=== PATIENT | female | born 1955 | race Hispanic/Latino ===

== ENCOUNTER 2020-06-21 10:06 | Outpatient (CLI) | payer MEDICARE, SELFPAY | END 2020-06-21 10:07 | disposition home or self-care (01) | LOC: ANHCOVIDVC 10:06 | PROVIDERS: PCP Family Medicine | DX: Z23 Encounter for immunization (principal) | CPT/HCPCS: 0001A; 91300 ==

== ENCOUNTER 2020-07-12 10:03 | Outpatient (CLI) | payer MEDICARE, SELFPAY | END 2020-07-12 10:04 | disposition home or self-care (01) | LOC: ANHCOVIDVC 10:04 | PROVIDERS: PCP Family Medicine | DX: Z23 Encounter for immunization (principal) | CPT/HCPCS: 0002A; 91300 ==